=== PATIENT | female | born 1940 | race Caucasian/White ===

== ENCOUNTER → 2016-07-01 | Outpatient (CLI) | payer OTHER | LOC: BMCIMAGING 14:37 | PROVIDERS: ATTEND Internal Medicine | DX: Z12.31 Encounter for screening mammogram for malignant neoplasm of breast (principal); Z13.820 Encounter for screening for osteoporosis; M85.80 Other specified disorders of bone density and structure, unspecified site; M51.36 Other intervertebral disc degeneration, lumbar region; M41.9 Scoliosis, unspecified | CPT/HCPCS: G0202 ==

== ENCOUNTER 2017-01-24 16:02 | Emergency (ER) | payer OTHER ==
[2017-01-24 16:16] VITALS: BP 138/92; PULSE 68; RESP 16; TEMP 99; O2SAT 94
--- NOTE | 2017-01-24 16:30 | EDPHY ---
H & P Stated Complaint: COUGH,CONGESTION,LARYNGITIS,FATIGUE Time Seen by Provider: 01/24/17 16:25 HPI/ROS: CHIEF COMPLAINT: Cough HISTORY OF PRESENT ILLNESS: Patient is a 76-year-old female who comes to the emergency department complaining of a cough and is concerned for pneumonia. She states that this feels similar to previous episodes of pneumonia. Her symptoms began 4 days ago. No fever. No shortness of breath or hypoxic. She states that her cough is productive for green sputum. No chest pain. No headache. REVIEW OF SYSTEMS: Constitutional: denies: chills, fever, recent illness, recent injury EENTM: denies: blurred vision, double vision, nose congestion Respiratory: See HPI Cardiac: denies: chest pain, irregular heart rate, lightheadedness, palpitations Gastrointestinal/Abdominal: denies: abdominal pain, diarrhea, nausea, vomiting, blood streaked stools Genitourinary: denies: dysuria, frequency, hematuria, pain Musculoskeletal: denies: joint pain, muscle pain Skin: denies: lesions, rash, jaundice, bruising Neurological: denies: headache, numbness, paresthesia, tingling, dizziness, weakness Hematologic/Lymphatic: denies: blood clots, easy bleeding, easy bruising Immunologic/allergic: denies: HIV/AIDS, transplant EXAM: GENERAL: Well-appearing, well-nourished and in no acute distress. HEAD: Atraumatic, normocephalic. EYES: Pupils equal round and reactive to light, extraocular movements intact, sclera anicteric, conjunctiva are normal. ENT: TMs normal, nares patent, oropharynx clear without exudates. Moist mucous membranes. NECK: Normal range of motion, supple without lymphadenopathy or JVD. LUNGS: Breath sounds clear to auscultation bilaterally and equal. No wheezes rales or rhonchi. HEART: Regular rate and rhythm without murmurs, rubs or gallops. ABDOMEN: Soft, nontender, normoactive bowel sounds. No guarding, no rebound. No masses appreciated. BACK: No CVA tenderness, no spinal tenderness, step-offs or deformities EXTREMITIES: Normal range of motion, no pitting or edema. No clubbing or cyanosis. NEUROLOGICAL: Cranial nerves II through XII grossly intact. Normal speech, normal gait. 5/5 strength, normal movement in all extremities, normal sensation PSYCH: Normal mood, normal affect. SKIN: Warm, dry, normal turgor, no visible rashes or lesions. Source: Patient Exam Limitations: No limitations - Personal History Current Tetanus Diphtheria and Acellular Pertussis (TDAP): Yes Tetanus Vaccine Date: 2015 - Medical/Surgical History Hx Asthma: No Hx Chronic Respiratory Disease: No Hx Diabetes: No Hx Cardiac Disease: No Hx Renal Disease: No Hx Cirrhosis: No Hx Alcoholism: No Hx HIV/AIDS: No Hx Splenectomy or Spleen Trauma: No Other PMH: htn, depression, right femur surg, shoulder surg, partial toe amputation,PNEUMONIA,PULMONARY EMBOLUS 2004 - Family History Significant Family History: No pertinent family hx - Social History Smoking Status: Never smoked Alcohol Use: Sober Drug Use: None Constitutional: Initial Vital Signs Temperature (C) 37.2 C 01/24/17 16:13 Heart Rate 68 01/24/17 16:13 Respiratory Rate 16 01/24/17 16:13 Blood Pressure 138/92 H 01/24/17 16:13 O2 Sat (%) 94 01/24/17 16:13 O2 Delivery Mode Room Air Allergies/Adverse Reactions: Penicillins Allergy (Severe, Verified 08/22/15 08:40) BODY RASH AND ITCHING Tetanus Toxoid,Fl *RETIRED-12/02/11 [Tetanus Toxoid,Fluid] Allergy (Severe, Verified 08/22/15 08:40) BODY RASH, ITCHY Home Medications: Medication Instructions Recorded Hydrochlorothiazide 08/22/15 Wellbutrin 100mg (RX) 08/22/15 Medical Decision Making - Diagnostics Imaging Results: Imaging Impressions Chest X-Ray 01/24/17 16:29 Impression: Negative for acute cardiopulmonary abnormality. Chronic changes, as above.. Imaging: Discussed imaging studies w/ package sealer machine Radiologist ED Course/Re-evaluation: We discussed the x-ray results. The patient is reassured. We discussed continued treatment. She does not request antibiotics. Differential Diagnosis: Partial list of the Differential diagnosis considered include but were not limited to; bronchitis, upper respiratory tract infection, pneumonia and although unlikely based on the history and physical exam, I also considered sepsis, acute coronary disease. I discussed these differential diagnoses and the plan with the patient as well as the usual and expected course. The patient understands that the diagnosis is provisional and that in medicine we are not always correct and that further workup is often warranted. Usual and customary warnings were given. All of the patient's questions were answered. The patient was instructed to return to the emergency department should the symptoms at all worsen or return, otherwise to followup with the physician as we discussed. Departure - Departure Disposition: Home, Routine, Self-Care Clinical Impression: Acute bronchitis Qualifiers: Bronchitis organism: unspecified organism Qualified Code(s): J20.9 - Acute bronchitis, unspecified Condition: Fair Instructions: Acute Bronchitis (ED) Referrals: Taryn Cote MD [Primary Care Provider] - As per Instructions
== END 2017-01-24 16:50 | disposition home or self-care (01) ==
LOC: CED 16:02
DX: J20.9 Acute bronchitis, unspecified (principal); I10 Essential (primary) hypertension
CPT/HCPCS: 71020-PO